=== PATIENT | male | born 1975 | race Caucasian/White ===

== ENCOUNTER 2016-07-22 02:03 | Emergency (ER) | payer SELFPAY ==
[~2016-07-22] VITALS: Ht 177.8 cm; Wt 82.0 kg
[~2016-07-22 02:03] MED LIST: ADDE30TA PO; CLIN150 PO; HYDR-3535 PO; LORA-474 PO; SOMA350T PO
[2016-07-22 02:04] VITALS: BP 164/82; PULSE 130; RESP 20; TEMP 98.2; O2SAT 98
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
[2016-07-22] MEDS ORDERED: MORPHINE SULFATE 4 MG/ML INJ IM ONE (02:45)
[2016-07-22] MEDS ORDERED: ONDANSETRON ODT 4 MG TAB PO ONE (02:45)
[2016-07-22] MEDS ORDERED: LIDOCAINE HCL 1% 50 ML VIAL INFIL ONE (03:00)
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
[2016-07-22] MEDS ORDERED: ACETAMINOPHEN/HYDROcodone 325 MG/5 MG TAB PO ONE (03:15)
[2016-07-22] MEDS ORDERED: CEPHALEXIN MONOHYDRATE 500 MG CAP PO ONE (03:15)
[2016-07-22] MEDS ORDERED: NORC5TAB PO (03:23)
[2016-07-22] MEDS ORDERED: CEPH-460 PO (03:24)
[2016-07-22] MEDS ORDERED: MOBI15TA PO (03:24)
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
[2016-07-22 03:59] VITALS: BP 130/89
== END 2016-07-22 05:33 | disposition home or self-care (01) ==
LOC: NEPE 02:03
DX: S91.331A Puncture wound without foreign body, right foot, initial encounter (principal); S92.341B Displaced fracture of fourth metatarsal bone, right foot, initial encounter for open fracture; F17.210 Nicotine dependence, cigarettes, uncomplicated; W34.00XA Accidental discharge from unspecified firearms or gun, initial encounter; Y93.89 Activity, other specified; Y92.007 Garden or yard of unspecified non-institutional (private) residence as the place of occurrence of the external cause; Y99.8 Other external cause status
CPT/HCPCS: 29515; 73630; 96372; 99283; E0113; J2270